=== PATIENT | male | born 1990 | race Two or more races ===

== ENCOUNTER 2024-11-19 11:03 | Emergency (ER) | payer MEDICAID, OTHER ==
[~2024-11-19] VITALS: Ht 177.8 cm; Wt 72.7 kg
--- NOTE | 2024-11-19 11:22 | ED.PDOC ---
HPI Comments This is a 34 year old male NALLELY presenting to the ED with chief complaint of chest pain. EMS reports that the patient has been staying at his friend's place for a few days now and has been drinking vodka heavily since then. EMS relays that the patient finished a fifth of vodka this morning and soon after started to experience 10/10 chest pain that radiates to his abdomen. EMS states patient has had barely any food and water since drinking, so they provided IVF for the patient along with a dose of ASA and NTG. Patient notes his right hand/arm have some muscle spasms at this time. Patient's BG was noted to be 121 on scene. Patient denies any SOB, dizziness, headache, N/V/D, hematemesis, fever, or chills. Chief Complaint: ETOH Time Seen by MD: 11:18 Reviewed Notes: Nurses Notes, Medications, Allergies Allergies: Coded Allergies: Insulin (Verified Allergy, Unknown, 11/19/24) Information Source: Patient Mode of Arrival: Ambulatory Severity: Moderate Timing: Hours Duration: Since onset Prehospital treatment: 12 Lead EKG, ASA, IVF, NTG Location: Chest (L) Radiation: Abdomen Quality: Sharp Onset: At Rest Cardiac Risk Factors: Diabetes PE Risk Factors: None History of: None Associated Signs and Symptoms: Abdominal Pain Past Medical History PAST MEDICAL HISTORY: CVA, DM Surgical History (Other): Left hand surgery Family History Family History: Reviewed,noncontributory to illness Social History Smoker: Non-Smoker Alcohol: Heavy Drugs: Denies Drug Use Lives In: Home Constitutional: denies: chills, diaphoresis, fatigue, fever, malaise, sweats, weakness, others EENTM: denies: blurred vision, double vision, ear bleeding, ear discharge, ear drainage, ear pain, ear ringing, eye pain, eye redness, hearing loss, mouth pain, mouth swelling, nasal discharge, nose bleeding, nose congestion, nose pain, photophobia, tearing, throat pain, throat swelling, voice changes, others Respiratory: denies: cough, hemoptysis, orthopnea, SOB at rest, shortness of breath, SOB with excertion, stridor, wheezing, others Cardiovascular: reports: chest pain; denies: dizzy spells, diaphoresis, Dyspnea on exertion, edema, irregular heart beat, left arm pain, lightheadedness, palpitations, PND, syncope, others Gastrointestinal: reports: abdominal pain; denies: abdomen distended, blood streaked bowels, constipated, diarrhea, dysphagia, difficulty swallowing, hematemesis, melena, nausea, poor appetite, poor fluid intake, rectal bleeding, rectal pain, vomiting, others Genitourinary: denies: burning, dysuria, flank pain, frequency, hematuria, incontinence, penile discharge, penile sore, pain, testicle pain, testicle swelling, urgency, others Neurological: denies: dizziness, fainting, headache, left sided numbness, left sided weakness, numbness, paresthesia, pre-existing deficit, right sided numbness, right sided weakness, seizure, speech problems, tingling, tremors, weakness, others Musculoskeletal: reports: others (Right hand muscle spasm); denies: back pain, gout, joint pain, joint swelling, muscle pain, muscle stiffness, neck pain Integumetry: denies: bruises, change in color, change in hair/nails, dryness, laceration, lesions, lumps, rash, wounds, others Allergic/Immunocompromised: denies: Difficulty Healing, Frequent Infections, Hives, Itching, others Hematologic/Lymphatic: denies: anemia, blood clots, easy bleeding, easy bruising, swollen glands, others Endocrine: denies: excessive hunger, excessive sweating, excessive thirst, excessive urination, flushing, intolerance to cold, intolerance to heat, u nexplained weight gain, unexplained weight loss, others Psychiatric: denies: anxiety, bipolar disorder, depression, hopeless, panic disorder, schizophrenia, sleepless, suicidal, others All Other Systems: Reviewed and Negative Physical Exam General Appearance: Mild Distress, Other (The patient is somewhat hyperventilating. The patient has alcohol in his breath) HEENT: Normal ENT Inspection, Pharynx Normal, TMs Normal Neck: Full Range of Motion, Non-Tender, Normal, Normal Inspection Respiratory: Chest Non-Tender, Lungs Clear, No Accessory Muscle Use, No Respiratory Distress, Normal Breath Sounds Cardiovascular: No Edema, No JVD, No Murmur, No Gallop, Normal Peripheral Pulses, Regular Rate/Rhythm Breast Exam: Deferred Gastrointestinal: No Organomegaly, Non Tender, No Pulsatile Mass, Normal Bowel Sounds, Soft Genitalia: Deferred Pelvic: Deferred Rectal: Deferred Extremities: No calf tenderness, Normal capillary refill, Normal inspection, Normal range of motion, Non-tender, No pedal edema Musculoskeletal : Apperance: Normal Neurologic: hospice art therapist II-XII nml as Tested, Motor Weakness, Normal Affect, Normal Mood, No Sensory Deficits Cerebellar Function: Normal Reflexes: Normal Skin: Dry, Normal Color, Warm Lymphatic: No Adenopathy EKG EKG : Pulse Rate (adult): 115 [place]: Normal Cardiac Rhythm: ST Block: None Hypertrophy: None ST: Normal Was a procedure done? Was a procedure done?: No CP Differential Dx Differential Diagnosis: Angina, [place], Pulmonary Embolus Differential Diagnosis: CHF Differential Diagnosis: Pericarditis X-Ray, Labs, Meds, VS Vital Signs Date Time Temp Pulse Resp B/P (MAP) Pulse Ox O2 Delivery O2 Flow Rate FiO2 11/19/24 16:14 99.0 107 18 130/81 (97) 100 99.0 11/19/24 14:00 97.6 94 24 126/82 (97) 100 97.6 11/19/24 13:20 Nasal Cannula* 2 28 11/19/24 12:05 99 12 126/80 (95) 95 11/19/24 12:05 99 12 95 Room Air* 0 21 11/19/24 11:22 115 11/19/24 11:09 115 11/19/24 11:05 98.1 120 14 125/65 (85) 98 98.1 Lab Test 11/19/24 11:30 11/19/24 00:00 Range/Units White Blood Count 7.8 4.4-10.8 10^3/uL Red Blood Count 4.49 L 4.5-5.90 10^6/uL Hemoglobin 13.4 L 13.5-17.5 g/dL Hematocrit 38.6 L 41.0-53.0 % Mean Corpuscular Volume 86.0 80.0-100.0 fL Mean Corpuscular Hemoglobin 29.8 28.0-32.0 pg Mean Corpuscular Hemoglobin Concent 34.6 32.0-36.0 g/dL Red Cell Distribution Width 14.2 11.8-14.3 % Platelet Count 196 140-450 10^3/uL Mean Platelet Volume 7.3 6.9-10.8 fL Neutrophils (%) (Auto) 75.0 37.0-80.0 % Lymphocytes (%) (Auto) 17.6 10.0-50.0 % Monocytes (%) (Auto) 6.3 0.0-12.0 % Eosinophils (%) (Auto) 0.0 0.0-7.0 % Basophils (%) (Auto) 1.1 0.0-2.0 % Neutrophils # (Auto) 5.9 1.6-8.6 10 ^3/uL Lymphocytes # (Auto) 1.4 0.4-5.4 10 ^3/uL Monocytes # (Auto) 0.5 0-1.3 10 ^3/uL Eosinophils # (Auto) 0 0-0.8 10 ^3/uL Basophils # (Auto) 0.1 0-0.2 10 ^3/uL Nucleated Red Blood Cells 0.1 % Sodium Level 137 136-145 mmol/L Potassium Level 3.4 L 3.5-5.1 mmol/L Chloride Level 99 98-107 mmol/L Carbon Dioxide Level 24 20-31 mmol/L Anion Gap 14 5-15 Blood Urea Nitrogen 16 9-23 mg/dL Creatinine 0.86 0.700-1.30 mg/dL Glomerular Filtration Rate Calc 117 >90 mL/min BUN/Creatinine Ratio 18.6 10.0-20.0 Serum Glucose 89 74-106 mg/dL Calcium Level 8.8 8.7-10.4 mg/dL Plasma/Serum Blood Alcohol 326.6 H <10 mg/dL Urine Opiates Screen Pending Urine Fentanyl Screen Pending Urine Barbiturates Screen Pending Urine Phencyclidine Screen Pending Urine Amphetamines Screen Pending Urine Benzodiazepines Screen Pending Urine Cocaine Screen Pending Urine Cannabinoids Screen Pending Current Medications Medications (Trade) Dose Ordered Sig/Rey Route Start Time Stop Time Status Last Admin Sodium Chloride 1,000 ml @ 1,000 mls/hr Q1H ONCE IVB 11/19/24 11:30 11/19/24 12:29 DC 11/19/24 11:39 Lorazepam (Ativan Inj) 1 mg ONCE ONCE IV 11/19/24 11:30 11/19/24 11:31 DC 11/19/24 11:38 Chest XR indicates: No acute intrathoracic abnormality. The patient was given a 1 L bolus of normal saline The patient was 1 mg IV push for the anxiety The patient's alcohol level was 326 patient's CBC chemistry panel are within normal We were going to evaluate the patient for possible admission and the patient has now signed out AMA. The patient was able to ambulate into the emergency department's without difficulty. The patient has signed out this time. Images Reviewed?: Images reviewed and evaluated by me Time of 1ST Reevaluation: 16:21 Reevaluation 1ST: Unchanged Patient Education/Counseling: Diagnosis, Treatment, Prognosis Family Education/Counseling: No Family Present Additional Information Reviewed patient's previous visit(s): None The following tests were ordered, and results were reviewed by me: Additional information was gathered from interviewing the following independent historian: NONE I reviewed and agreed with the following test results read by other provider: NONE I discussed treatments and results with medical personnel and: Patient Comprehensive systems review obtained and negative except for what is stated in the HPI. Departure 1 Departure Time of Disposition: 16:21 Impression: Primary Impression: Alcohol intoxication Qualified Codes: F10.920 - Alcohol use, unspecified with intoxication, uncomplicated Additional Impression: Musculoskeletal chest pain Disposition: HOME / SELF CARE / HOMELESS Condition: Fair Discharged With: Self Critical Care Note Critical Care Time?: No Stability Stability form required: No Heart Score Heart Score: Heart Score Response (Comments) Value History Moderate Suspicious 1 EKG Normal 0 Age <45 0 Risk Factors 1 or 2 risk factors 1 Troponin Normal limit 0 Total 2 I personally scribed for ARNOLD BOBO MD ([email or web address]) on 11/19/24 at 11:22. Electronically submitted by Reagan Salcedo ([email or web address]). I personally scribed for ARNOLD BOBO MD ([email or web address]) on 11/19/24 at 11:22. Electronically submitted by Reagan Salcedo ([email or web address]). I personally scribed for ARNOLD BOBO MD ([email or web address]) on 11/19/24 at 12:25. Electronically submitted by Reagan Salcedo ([email or web address]). ARNOLD BOBO MD Nov 19, 2024 11:22
[2024-11-19] MEDS: LORazepam 2MG/ML-1ML VIAL IV ONE (11:38)
[2024-11-19] MEDS: SODIUM CHLORIDE 0.9% 1,000 ML IVB ONE (11:39)
[2024-11-19 11:40] LABS: Basophils # (auto) 0.1 10 ^3/uL (0-0.2); Basophils % (auto) 1.1 % (0.0-2.0); Eosinophils # (auto) 0 10 ^3/uL (0-0.8); Hematocrit 38.6 % (41.0-53.0); Hemoglobin 13.4 g/dL (13.5-17.5); Lymphocytes # (auto) 1.4 10 ^3/uL (0.4-5.4); Lymphocytes % (auto) 17.6 % (10.0-50.0); Mean Corpuscular Hemoglobin 29.8 pg (28.0-32.0); Mean Corpuscular Hgb Conc. 34.6 g/dL (32.0-36.0); Monocytes # (auto) 0.5 10 ^3/uL (0-1.3); Monocytes % (auto) 6.3 % (0.0-12.0); Neutrophils # (auto) 5.9 10 ^3/uL (1.6-8.6); Nucleated Red Blood Cells % 0.1 %; Platelet Count (auto) 196 10^3/uL (140-450); Red Blood Cells 4.49 10^6/uL (4.5-5.90); Red Cell Distribution Width 14.2 % (11.8-14.3); White Blood Cell 7.8 10^3/uL (4.4-10.8)
--- NOTE | 2024-11-19 11:44 | DVH ---
XY CHEST PORTABLE, HISTORY: sob COMPARISON: None None TECHNICAL DATA: 1 view of the chest was obtained. FINDINGS: Lines and tubes: None Cardiomediastinal silhouette: normal Pulmonary vasculature: normal Lung expansion: normal Lung airspace: normal Lung interstitium: normal Pleura: normal Pneumothorax: no Bones: Unremarkable Other: no IMPRESSION: No acute intrathoracic abnormality.
[2024-11-19 11:49] LABS: Chloride 99 mmol/L (98-107); Sodium 137 mmol/L (136-145)
[2024-11-19 11:50] LABS: Anion Gap 14 (5-15); Carbon Dioxide 24 mmol/L (20-31)
[2024-11-19 11:51] LABS: Calcium 8.8 mg/dL (8.7-10.4)
[2024-11-19 11:55] LABS: Glucose 89 mg/dL (74-106)
[2024-11-19 11:56] LABS: BUN/Creatinine Ratio 18.6 (10.0-20.0); Blood Urea Nitrogen 16 mg/dL (9-23)
[2024-11-19 11:58] LABS: Potassium 3.4 mmol/L (3.5-5.1)
[2024-11-19 12:05] VITALS: PULSE 99; RESP 12; O2SAT 95
[2024-11-19 12:05] LABS: Blood Alcohol 326.6 mg/dL (<10)
[2024-11-19 16:14] VITALS: BP 130/81; PULSE 107; RESP 18; TEMP 99; O2SAT 100
[2024-11-19 16:31] LABS: Amphetamine Screen, Urine Neg (NEGATIVE); Barbiturate Scree,Urine Neg (NEGATIVE); Benzodiazephine Screen, Urine Neg (NEGATIVE); Cannabinoid Screen, Urine Neg (NEGATIVE); Cocaine Screen, Urine Neg (NEGATIVE); Opiate Scree,Urine Neg (NEGATIVE); Phencyclidine Screen, Urine Neg (NEGATIVE)
--- NOTE | 2024-11-22 12:13 | ECG ---
[facility] Test Date: 2024-11-19 Test Time: 11:09:15 Pat Name: ELTON ALBERTO Department: ED Room: Gender: M Supply Teacher: dominga : 1990 Requested By: ARNOLD BOBO Order Number: [id number] Reading MD: Rene Graf Measurements Intervals [place] Rate: 115 P: 83 IN: 154 QRS: 88 QRSD: 90 T: -4 QT: 350 QTc: 484 Interpretive Statements Sinus tachycardia Probable left atrial enlargement Borderline T wave abnormalities Borderline prolonged QT interval Baseline wander in lead(s) V1,V2 Electronically Signed On 11-24-2024 20:30:04 PDT by Rene Graf Please click the below link to view image of tracing.
== END 2024-11-19 16:45 | disposition left against medical advice (07) ==
LOC: EDBD 11:03 → ER 11:03
DX: F10.129 Alcohol abuse with intoxication, unspecified (principal); R07.89 Other chest pain; M62.838 Other muscle spasm; E11.9 Type 2 diabetes mellitus without complications; Z79.4 Long term (current) use of insulin; Z86.73 Personal history of transient ischemic attack (TIA), and cerebral infarction without residual deficits; Z88.6 Allergy status to analgesic agent; Z98.890 Other specified postprocedural states; Y90.8 Blood alcohol level of 240 mg/100 ml or more
CPT/HCPCS: 36415; 71045; 80048; 80307; 80320; 85025; 93005; 96361; 96374; 99285; J2060; J7030

== ENCOUNTER 2025-06-04 19:23 | Emergency (ER) | payer SELFPAY ==
[~2025-06-04] VITALS: Ht 172.7 cm; Wt 72.7 kg
--- NOTE | 2025-06-04 20:19 | ED.PDOC ---
History of Present Illness HPI Comments 35 y/o M is BIBA for wellness check. Patient is reported to have been drinking copious amounts of alcohol for the past several days. He was brought to the ED after bystanders called after finding him sleeping outside. At time of assessment, patient comments on wanting to go home and, already, calling his wif e to pick him up. He denies on having any current complaints. Denies any drug use. Chief Complaint: ETOH Time Seen by MD: 19:55 Reviewed Notes: Nurses Notes, Land Lease Information Clerk Notes Allergies: Coded Allergies: Insulin (Verified Allergy, Unknown, 11/19/24) Information Source: Patient, Emergency Med Personnel Mode of Arrival: Ambulatory Severity: Moderate Timing: Hours Duration: Since onset Prehospital treatment: 12 Lead EKG, Nuclear Radiation Engineer Past Medical History PAST MEDICAL HISTORY: CVA, DM Family History Family History: Reviewed,noncontributory to illness Social History Smoker: Non-Smoker Alcohol: Heavy Drugs: Denies Drug Use Lives In: Home All Other Systems: Reviewed and Negative (Comprehensive systems review obtained and negative except for what is stated in the HPI.) Physical Exam General Appearance: No Apparent Distress, Normal HEENT: Normal ENT Inspection, Pharynx Normal, TMs Normal Neck: Full Range of Motion, Non-Tender, Normal, Normal Inspection Respiratory: Chest Non-Tender, Lungs Clear, No Accessory Muscle Use, No Respiratory Distress, Normal Breath Sounds Cardiovascular: No Edema, No JVD, No Murmur, No Gallop, Normal Peripheral Pulses, Regular Rate/Rhythm Breast Exam: Deferred Gastrointestinal: No Organomegaly, Non Tender, No Pulsatile Mass, Normal Bowel Sounds, Soft Genitalia: Deferred Pelvic: Deferred Rectal: Deferred Extremities: No calf tenderness, Normal capillary refill, Normal inspection, Normal range of motion, Non-tender, No pedal edema Musculoskeletal : Apperance: Normal Neurologic: Alert, lyric writer II-XII nml as Tested, No Motor Deficits, Normal Affect, Normal Mood, No Sensory Deficits Cerebellar Function: Normal Reflexes: Normal Skin: Dry, Normal Color, Warm, Wounds (abrasion to right wrist ) Lymphatic: No Adenopathy Was a procedure done? Was a procedure done?: No Differential Dx Considerations may include: alcohol intoxication , alcohol abuse, drug abuse, homelessness, mental disorder. X-Ray, Labs, Meds, VS Vital Signs Date Time Temp Pulse Resp B/P (MAP) Pulse Ox O2 Delivery O2 Flow Rate FiO2 06/04/25 19:50 97.8 81 18 120/97 98 97.8 Time of 1ST Reevaluation: 20:25 Reevaluation 1ST: Unchanged Patient Education/Counseling: Diagnosis, Treatment, Prognosis, Need For Follow Up Family Education/Counseling: Diagnosis, Treatment, Prognosis, Need For Follow Up, No Family Present Comments This is a patient who has no complaints. Admittedly he has been drinking alcohol. The he is now alert oriented and his is on her way to come pick him up. Patient declined to have any tests done. He is asking for water wants to go home. Additional Information Previous history reviewed: N/A The following tests were ordered, and results were reviewed by me: N/A Additional Information was gathered from interviewing the following independent historians: EMS personnel I reviewed and agreed with the following test results read by other providers: N/A I discussed treatment and results with medical personnel and: patient SEPSIS Sepsis Screen Date sepsis recognized/suspect: Jun 04, 2025 Time Sepsis recognized/suspect: 1952 Recent Procedure: No On Antibiotic Therapy: No Respiratory Rate >20: No Heart Rate >90: No Temp<36 C (96.8 F) or >38.3 C: No SBP <90 or MAP <65 mmHG: No New Acute Mental Status Change: No Is the patient on CPAP, BIPAP,: No Vital Signs Date Time Temp Pulse Resp B/P (MAP) Pulse Ox O2 Delivery O2 Flow Rate FiO2 06/04/25 19:50 97.8 81 18 120/97 98 97.8 Departure 1 Departure Time of Disposition: 20:20 Impression: Primary Impression: Alcohol intoxication Disposition: HOME / SELF CARE / HOMELESS Condition: Stable Discharged With: Spouse Critical Care Note Critical Care Time?: No Stability Stability form required: No Heart Score Heart Score: Heart Score Response (Comments) Value History N/A 0 EKG N/A 0 Age N/A 0 Risk Factors N/A 0 Troponin N/A 0 Total 0 I personally scribed for LATESHA PAL MD ([email or web address]) on 06/04/25 at 20:18. Electronically submitted by Jose Bower ([email or web address]). I personally scribed for LATESHA PAL MD ([email or web address]) on 06/04/25 at 20:37. Electronically submitted by Jose Bower ([email or web address]). LATESHA PAL MD Jun 04, 2025 20:18
[2025-06-05 07:30] VITALS: BP 139/60; PULSE 73; RESP 15; TEMP 98; O2SAT 100
== END 2025-06-05 08:28 | disposition home or self-care (01) ==
LOC: EDBD 19:23 → ER 19:23
DX: F10.129 Alcohol abuse with intoxication, unspecified (principal); Z00.00 Encounter for general adult medical examination without abnormal findings; Z86.73 Personal history of transient ischemic attack (TIA), and cerebral infarction without residual deficits; Y90.9 Presence of alcohol in blood, level not specified

== ENCOUNTER 2025-06-07 09:46 | Emergency (ER) | payer SELFPAY ==
[~2025-06-07] VITALS: Ht 182.9 cm; Wt 90.9 kg
--- NOTE | 2025-06-07 10:16 | ED.PDOC ---
History of Present Illness HPI Comments 35-year-old male who is Maced[place]-speaking BIBA with prior medical history of CVA and diabetes and the chief complaint of chest wall pain. Patient reports on having left-sided chest wall pain status post drinking alcohol and running into a tree. Patient does have an abrasion to the left side of his chest, the right medial wrist and the ankle. Denies any other symptoms at this time. Denies chills, fever, N/V/D, SOB, CP. No other associated symptoms, modifiers, recent injuries or sick contacts present at this time. Chief Complaint: Chest Wall Injury Time Seen by MD: 10:15 Reviewed Notes: Nurses Notes, Reactor Service Operator Notes, Medications, Allergies Allergies: Coded Allergies: Insulin (Verified Allergy, Unknown, 11/19/24) Information Source: Patient, Emergency Med Personnel Mode of Arrival: EMS Severity: Moderate Timing: Minutes Duration: Since onset, Minutes Prehospital treatment: None Past Medical History PAST MEDICAL HISTORY: CVA, DM Surgical History: Denies all surgeries Family History Family History: Reviewed,noncontributory to illness, Unknown Social History Smoker: Non-Smoker Alcohol: Heavy Drugs: Denies Drug Use Lives In: Home Constitutional: denies: chills, diaphoresis, fatigue, fever, malaise, sweats, weakness, others EENTM: denies: blurred vision, double vision, ear bleeding, ear discharge, ear drainage, ear pain, ear ringing, eye pain, eye redness, hearing loss, mouth pain, mouth swelling, nasal discharge, nose bleeding, nose congestion, nose pain, photophobia, tearing, throat pain, throat swelling, voice changes, others Respiratory: denies: cough, hemoptysis, orthopnea, SOB at rest, shortness of breath, SOB with excertion, stridor, wheezing, others Cardiovascular: reports: chest pain (Chest wall); denies: dizzy spells, diaphoresis, Dyspnea on exertion, edema, irregular heart beat, left arm pain, lightheadedness, palpitations, PND, syncope, others Gastrointestinal: denies: abdomen distended, abdominal pain, blood streaked bowels, constipated, diarrhea, dysphagia, difficulty swallowing, hematemesis, melena, nausea, poor appetite, poor fluid intake, rectal bleeding, rectal pain, vomiting, others Genitourinary: denies: burning, dysuria, flank pain, frequency, hematuria, incontinence, penile discharge, penile sore, pain, testicle pain, testicle swelling, urgency, others Neurological: denies: dizziness, fainting, headache, left sided numbness, left sided weakness, numbness, paresthesia, pre-existing deficit, right sided numbness, right sided weakness, seizure, speech problems, tingling, tremors, weakness, others Musculoskeletal: denies: back pain, gout, joint pain, joint swelling, muscle pain, muscle stiffness, neck pain, others Integumetry: denies: bruises, change in color, change in hair/nails, dryness, laceration, lesions, lumps, rash, wounds, others Allergic/Immunocompromised: denies: Difficulty Healing, Frequent Infections, Hives, Itching, others Hematologic/Lymphatic: denies: anemia, blood clots, easy bleeding, easy bruising, swollen glands, others Endocrine: denies: excessive hunger, excessive sweating, excessive thirst, excessive urination, flushing, intolerance to cold, intolerance to heat, unexplained weight gain, unexplained weight loss, others Psychiatric: denies: anxiety, bipolar disorder, depression, hopeless, panic disorder, schizophrenia, sleepless, suicidal, others All Other Systems: Reviewed and Negative Physical Exam General Appearance: Moderate Distress, Normal HEENT: Normal ENT Inspection, Pharynx Normal, TMs Normal Neck: Full Range of Motion, Non-Tender, Normal, Normal Inspection Respiratory: Chest Non-Tender, Lungs Clear, No Accessory Muscle Use, No Respiratory Distress, Normal Breath Sounds Cardiovascular: No Edema, No JVD, No Murmur, No Gallop, Normal Peripheral Pulses, Regular Rate/Rhythm Breast Exam: Deferred Gastrointestinal: No Organomegaly, Non Tender, No Pulsatile Mass, Normal Bowel Sounds, Soft Genitalia: Deferred Pelvic: Deferred Rectal: Deferred Extremities: No calf tenderness, Normal capillary refill, Normal inspection, Normal range of motion, Non-tender, No pedal edema Musculoskeletal : Apperance: Normal Neurologic: Alert, batch unloader II-XII nml as Tested, No Motor Deficits, Normal Affect, Normal Mood, No Sensory Deficits Cerebellar Function: Normal Reflexes: Normal Skin: Dry, Normal Color, Warm Peripheral Pulses: 3+ Radial (R), 3+ Radial (L) Lymphatic: No Adenopathy Was a procedure done? Was a procedure done?: No Differential Dx Considerations may include: Anemia Electrolyte imbalance X-Ray, Labs, Meds, VS Vital Signs Date Time Temp Pulse Resp B/P (MAP) Pulse Ox O2 Delivery O2 Flow Rate FiO2 06/07/25 09:55 98.7 86 18 128/69 98 98.7 Patient alert. No sign of distress. Answering questions. Ambulating. Vitals stable. No sign of distress. Explained to the patient. Was told to follow up with his primary care physician. Was told to come back if there is any problem. Time of 1ST Reevaluation: 10:45 Reevaluation 1ST: Improved Patient Education/Counseling: Diagnosis, Treatment, Prognosis Family Education/Counseling: No Family Present SEPSIS Sepsis Screen Date sepsis recognized/suspect: Jun 07, 2025 Time Sepsis recognized/suspect: 958 Recent Procedure: No On Antibiotic Therapy: No Respiratory Rate >20: No Heart Rate >90: No Temp<36 C (96.8 F) or >38.3 C: No SBP <90 or MAP <65 mmHG: No New Acute Mental Status Change: No Is the patient on CPAP, BIPAP,: No Vital Signs Date Time Temp Pulse Resp B/P (MAP) Pulse Ox O2 Delivery O2 Flow Rate FiO2 06/07/25 09:55 98.7 86 18 128/69 98 98.7 Departure 1 Departure Time of Disposition: 12:45 Impression: Primary Impression: Anxiety Disposition: 01 HOME / SELF CARE / HOMELESS Condition: Good Discharged With: Self Critical Care Note Critical Care Time?: No Stability Stability form required: No I personally scribed for JAM SINCLAIR MD ([email or web address]) on 06/07/25 at 10:16. Electronically submitted by Paras Magdaleno ([email or web address]). JAM SINCLAIR MD Jun 07, 2025 10:16
[2025-06-07 13:32] VITALS: BP 114/59; PULSE 86; RESP 16; TEMP 97.9; O2SAT 100
== END 2025-06-07 13:55 | disposition home or self-care (01) ==
LOC: ER 09:46 → EDBD 09:46 → ER 13:55
DX: S20.312A Abrasion of left front wall of thorax, initial encounter (principal); E11.9 Type 2 diabetes mellitus without complications; Z86.73 Personal history of transient ischemic attack (TIA), and cerebral infarction without residual deficits; X58.XXXA Exposure to other specified factors, initial encounter; Y93.02 Activity, running; Y92.89 Other specified places as the place of occurrence of the external cause; Y99.8 Other external cause status